=== PATIENT | male | born 1945 | race Caucasian/White ===

== ENCOUNTER 2022-04-29 08:23 | Outpatient (CLI) | payer OTHER, SELFPAY ==
--- NOTE | ~2022-04-29 | CT_ITS ---
EXAMINATION: CT lung screening DATE: 04/29/2022 09:23 INDICATION: Personal history of nicotine dependence, former smoker with 65 pack year history TECHNIQUE: Computed tomography (CT) of the chest was performed without intravenous contrast. The dose -length product (DLP) was 112.75 mGy-cm. Automated exposure control and iterative reconstruction tech [employer] were employed. COMPARISON: None FINDINGS: There is mild emphysema. There are subpleural reticular and groundglass opacity with a mid and lower lung zone predominance bronchiectasis is noted in the affected segments of the lungs. There is a 6 mm nodule of the left upper lobe on image 50. No pleural effusion or pneumothorax. 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 The heart size is normal. There is mild mediastinal lymph adenopathy, likely reactive. There is mild thoracic spondylosis. IMPRESSION: 1. Lung-RADS category 2S: Benign appearance or behavior. Continue annual screening with noncontrast l ow-dose chest CT in 12 months. 2. Chronic interstitial lung disease in a pattern of nonspecific interstitial pneumonia (NSIP). Reviewed, dictated and finalized at location B. IMPRESSION: 1. Lung-RADS category 2S: Benign appearance or behavior. Continue annual screen ing with noncontrast low-dose chest CT in 12 months. 2. Chronic interstitial lung disease in a pattern of nonspecific interstitial p neumonia (NSIP).
== END 2022-04-29 08:24 | disposition home or self-care (01) ==
DX: Z12.2 Encounter for screening for malignant neoplasm of respiratory organs (principal); Z87.891 Personal history of nicotine dependence
CPT/HCPCS: 71271

== ENCOUNTER 2022-10-15 11:24 | Outpatient (CLI) | payer OTHER, MEDICAID, SELFPAY | END 2022-10-15 11:25 | disposition home or self-care (01) | LOC: ANHLAB 11:29 | PROVIDERS: Visit Provider Internal Medicine | DX: A49.01 Methicillin susceptible Staphylococcus aureus infection, unspecified site (principal) | CPT/HCPCS: 87040 ==